=== PATIENT | male | born 1950 | race Caucasian/White ===

== ENCOUNTER → 2023-05-19 | Outpatient (CLI) | payer OTHER ==
[~2023-05-19] VITALS: Ht 195.6 cm; Wt 112.5 kg
[~2023-05-19] MED LIST: albuterol 2.5 MG/3 ML nebule NEB PRN
[2023-05-19 09:15] VITALS: PULSE 69; RESP 14; O2SAT 93
== END | disposition home or self-care (01) ==
LOC: RT 08:40
PROVIDERS: ATTEND Chiropractor
DX: R06.02 Shortness of breath (principal); M84.48XA Pathological fracture, other site, initial encounter for fracture
CPT/HCPCS: 71046; 94060; 94760